=== PATIENT | female | born 1950 | race Caucasian/White ===

== ENCOUNTER 2023-05-04 17:29 | Emergency (ER) | payer OTHER, SELFPAY ==
--- NOTE | 2023-05-04 17:34 | ED.URI ---
HPI - URI/Sore Throat General Chief Complaint: Upper Respiratory Infection Stated Complaint: Sore Throat/Runny Nose Time Seen by Provider: 05/04/23 18:07 Source: patient and RN notes reviewed Mode of arrival: ambulatory Limitations: no limitations History of Present Illness HPI Narrative: 73-year-old female presents concern for sore throat, hoarse voice. Reports on Thursday she started having a runny nose and stuffy nose. She reports she began having a sore throat yesterday. She took an allergy pill on Thursday. She took a COVID test that was negative today. Reports her has had similar symptoms. MD elicited complaint: sore throat Related Data Home Medications Medication Instructions Recorded Confirmed cyanocobalamin (vitamin B-12) mcg 05/04/23 1,000 mcg/mL injection solution estradiol 0.5 mg tablet mg 05/04/23 Allergies Allergy/AdvReac Type Severity Reaction Status Date / Time latex Allergy Unknown Verified 05/04/23 17:45 clindamycin AdvReac Dizziness Verified 05/04/23 17:45 ibuprofen AdvReac Other Verified 05/04/23 18:17 levofloxacin [From Levaquin] AdvReac Dizziness Verified 05/04/23 17:45 metronidazole [From Flagyl] AdvReac Dizziness Verified 05/04/23 17:45 Sulfa (Sulfonamide AdvReac Nausea and Verified 05/04/23 17:45 Antibiotics) Vomiting Review of Systems Review of Systems: CONSTITUTIONAL: Denies malaise, chills, sweats, or fever. EYES: Denies visual changes, redness, or discharge. ENT: Reports rhinorrhea, congestion, and sore throat. CARDIOVASCULAR: Denies chest pain, palpitations, or edema. RESPIRATORY: Reports occasion cough. Denies dyspnea. GASTROINTESTINAL: Denies abdominal pain, nausea, vomiting, diarrhea SKIN: Denies rash or itching. MUSCULOSKELETAL: Denies myalgia. NEUROLOGIC: Denies headache. All systems reviewed & are unremarkable except as noted in HPI and below PMFSH Comments At time of signature, agree with nursing past medical, surgical, social and family history. There is no relevant family history pertinent to the presenting complaint Exam Narrative: GENERAL: Well-appearing, well-nourished, and in no acute distress. HEAD: Normocephalic EYES: PERRLA, conjunctivae clear ENT: Nares clear, turbinates edematous and erythematous, clear discharge. Mucous membranes moist. TM pearly walker with dull light reflex bilaterally; no tragal tenderness. Oropharynx erythematous without lesions. Tonsils not enlarged and without exudate, no drooling, no trismus, uvula midline. Mild hoarse voice NECK: Supple. No lymphadenopathy CHEST: Clear to auscultation, breath sounds equal. No wheezing, rhonchi, rales, or stridor. No respiratory distress, speaks in full sentences. HEART: Regular rate and rhythm. No murmur heard. SKIN: Warm, dry, no rash. NEURO: Alert and oriented x3. PSYCH: Normal mood and affect Course Course Emergency Course: Patient is aware of diagnosis, understands and agrees to treatment plan. Anticipatory guidance given. Patient agrees to follow-up as directed and is aware of reasons to seek care at the emergency department. Portions of this record may have been created with voice recognition software Level of Care: Express Care Visit Vital Signs Vital signs: Reviewed. MDM - URI/Sore Throat MDM Narrative Medical decision making narrative: Differential diagnosis considered: [place] virus, strep pharyngitis, allergic rhinitis, upper respiratory tract infection, sinusitis, rhinosinusitis, nasopharyngitis. viral pharyngitis, otitis media, otitis externa, pneumonia, bronchitis, viral cough syndrome, viral syndrome, and influenza. Exam findings show no acute concerns or changes; patient is non-toxic appearing and is in no distress. Patient is appropriate for outpatient treatment and follow-up. Lab Data Attestation: I reviewed the patient's lab results. Critical Care Time Critical Care Time Critical Care Time: No Discharge Plan Discharge Clinical Impression: Pha
[2023-05-04 17:38] VITALS: BP 159/93; PULSE 121; RESP 20; TEMP 37.7; O2SAT 98
== END 2023-05-04 18:18 | disposition home or self-care (01) ==
PROVIDERS: Emergency Provider Nurse Practitioner
DX: J02.9 Acute pharyngitis, unspecified (principal); Z79.899 Other long term (current) drug therapy
CPT/HCPCS: 87081; 87880; 99213; G0463

== ENCOUNTER 2023-05-24 09:50 | Emergency (ER) | payer OTHER, SELFPAY ==
[2023-05-24 09:54] VITALS: BP 155/91; PULSE 116; RESP 20; TEMP 37.3; O2SAT 100
--- NOTE | 2023-05-24 10:02 | ED.URI ---
HPI - URI/Sore Throat General Chief Complaint: Upper Respiratory Infection Stated Complaint: throat swollen, yeast inf History of Present Illness HPI Narrative: Patient presents with a continued sore throat. No fever no trouble swallowing no drooling. Patient states she is taking Claritin daily with minimal relief in her symptoms. Patient was here 05/04/2023 and diagnosed with viral URI have a negative strep test at that time and placed on steroids. Patient called her PCP and he discontinue the steroids and put her on amoxicillin for her sore throat. Patient presents today with a vaginal yeast infection from the antibiotics and continued sore throat. Related Data Home Medications Medication Instructions Recorded Confirmed cyanocobalamin (vitamin B-12) mcg 05/04/23 1,000 mcg/mL injection solution estradiol 0.5 mg tablet mg 05/04/23 Allergies Allergy/AdvReac Type Severity Reaction Status Date / Time latex Allergy Unknown Verified 05/04/23 17:45 clindamycin AdvReac Dizziness Verified 05/04/23 17:45 ibuprofen AdvReac Other Verified 05/04/23 18:17 levofloxacin [From Levaquin] AdvReac Dizziness Verified 05/04/23 17:45 metronidazole [From Flagyl] AdvReac Dizziness Verified 05/04/23 17:45 Sulfa (Sulfonamide AdvReac Nausea and Verified 05/04/23 17:45 Antibiotics) Vomiting Review of Systems Review of Systems: CONSTITUTIONAL: Denies chills, or sweats. Reports fever and generalized body aches EYES: Denies visual changes, redness, or discharge. ENT: Denies otalgia. Reports nasal congestion runny nose and sore throat CARDIOVASCULAR: Denies chest pain, palpitations, or edema. RESPIRATORY: Denies dyspnea. Reports occasional cough GASTROINTESTINAL: Denies abdominal pain, nausea, vomiting, or diarrhea. GENITOURINARY: Denies dysuria or hematuria. SKIN: Denies rash or itching. MUSCULOSKELETAL: Denies back pain, joint pain, or myalgia. Reports generalized body aches NEUROLOGIC: Denies headache, numbness, or weakness. PSYCHIATRIC: Denies anxiety or depression. PMFSH Comments At time of signature, agree with nursing past medical, surgical, social and family history. There is no relevant family history pertinent to the presenting complaint Exam Narrative: The patient is a well-developed, well-nourished in no acute distress. SKIN: Skin is warm and dry without erythema, swelling or exudate. There is good turgor. No tenting. HEAD: Atraumatic. Normocephalic. No temporal or scalp tenderness. EYES: Moist and bright. Sclera and conjunctivae normal. No discharge. PERRLA. Extraocular motions intact. Gross visual acuity intact. EARS: Pinna is normal shape and contour. Clear external auditory canals. TM pearly michael with good cone of light, no erythema or suppuration. Bilateral cerumen noted no gross hearing deficit. NOSE: pink, moist mucosa with good air movement. Clear rhinorrhea without nasal flaring. Septum midline. Mouth: moist mucous membranes. THROAT; mild erythema noted to posterior oropharynx with moderate postnasal drainage. Without exudate or ulceration.. Uvula midline. Normal movement of soft palate. No pharyngeal erythema no trismus able to open mouth fully NECK: Supple and nontender with full range of motion without discomfort. No meningeal signs. LUNGS: Equal and bilateral breath sounds without wheezes, rales or rhonchi. CHEST: The chest wall is without retractions or use of accessory muscles. HEART: Has a regular rate and rhythm without murmur, gallops, click or rub. ABDOMEN: Soft, nontender with positive active bowel sounds. No rebound tenderness. EXTREMITIES: Without cyanosis, clubbing or edema. Equal 2+ distal pulses and 2 second capillary refill noted. NEUROLOGIC: alert, active, . The patient moves all extremities with normal muscle strength. Normal muscle tone is noted. Normal coordination is noted. NO focal neurological findings noted. Course Course Level of Care: Express Care Visit Vital Signs Vital si
== END 2023-05-24 10:17 | disposition home or self-care (01) ==
PROVIDERS: Emergency Provider Nurse Practitioner Family
DX: B37.31 Acute candidiasis of vulva and vagina (principal); T36.0X5A Adverse effect of penicillins, initial encounter; R09.82 Postnasal drip; J06.9 Acute upper respiratory infection, unspecified
CPT/HCPCS: 99213; G0463